=== PATIENT | female | born 1940 | race Caucasian/White ===

== ENCOUNTER 2023-11-17 13:40 | Emergency (ER) | payer OTHER, SELFPAY ==
[2023-11-17 13:50] VITALS: BP 183/75
[2023-11-17 14:12] LABS: % Basophils 0.8 % (0-2); % Eosinophils 1.8 % (0-6); % Immature Granulocytes 0.3 % (0-0.5); % Monocytes 8.8 % (1.7-9.3); % Neutrophils 70.3 % (42.2-75.2); Absolute Basophils 0.1 10^3/uL (0-0.2); Absolute Eosinophils 0.2 10^3/uL (0-0.7); Absolute Lymphocytes 1.7 10^3/uL (1.2-3.4); Absolute Monocytes 0.8 10^3/uL (0.1-0.6); Absolute Neutrophils 6.5 10^3/uL (1.4-6.5); Hemoglobin 13.5 g/dL (12.0-16.0); Mean Corp Hgb Conc. 33.8 g/dL (33.0-37.0); Mean Corpuscular Hgb 31.7 pg (27.0-31.0); Mean Corpuscular Volume 93.9 fL (81.0-99.0); Mean Platelet Volume 10.9 fL (7.4-10.4); Nucleated Red Blood Cells % 0 %; Platelet Count 236 10^3/uL (130-400); Red Blood Cell Count 4.26 10^6/uL (4.20-5.40); Red Cell Dist. Width 11.9 % (11.5-14.5); White Blood Cell Count 9.3 10^3/uL (4.8-10.8)
[2023-11-17 14:26] LABS: ALT (SGPT) 18 U/L (0-35); AST (SGOT) 26 U/L (14-36); Albumin 4.2 g/dl (3.5-5.0); Alkaline Phosphatase 60 U/L (38-126); Blood Urea Nitrogen 17 mg/dl (7-17); Calcium 9.7 mg/dl (8.4-10.2); Carbon Dioxide 30 mmol/L (22-30); Chloride 102 mmol/L (98-107); Glucose 123 mg/dl (70-99); Lipase 29 U/L (23-300); Potassium 4.5 mmol/L (3.5-5.1); Sodium 136 mmol/L (135-145); Total Bilirubin 0.3 mg/dl (0.2-1.3); Total Protein 6.3 g/dl (6.3-8.2); eGFR > 60.00
--- NOTE | 2023-11-17 17:10 | ED.GENMED ---
History of Present Illness
General
Chief Complaint: Abdominal Symptoms
Source: patient
Exam Limitations: none
Time Seen by Provider: 11/17/23 17:08
Nursing documentation reviewed up to this point in time: agreed with
History of Present Illness
History of Present Illness:
83-year-old female with past medical history of hypertension, hyperlipidemia presenting to the emergency department today with concerns of diarrhea for a little over a month. Patient states that she has been eating and drinking okay with no issue.
Patient reports that the diarrhea is nonbloody. When it first happened, she went to her primary care provider who diagnosed her with a viral gastroenteritis and started her on Imodium. Patient states that this did not resolve her symptoms. She
subsequently went to urgent care who started her on ciprofloxacin and Pepto-Bismol which also did not help. She finished her course of ciprofloxacin 7 days ago. She continued with the diarrhea. Patient notes some mild abdominal cramping right before
she has a bowel movement but otherwise no abdominal pain, no nausea, no vomiting, no fevers or chills, no rectal pain, black stools. Patient states that she tried to make a follow up appointment with her primary care provider to address this, but
she could not get an appointment for a few weeks. Patient has never seen a package handler for this issue.
Review of Systems
Review of Systems
All Other Systems: ROS reviewed and negative except as documented in HPI and ROS
Phy Exam
Physical Exam
Physical Exam:
General: Patient is well appearing and in no acute distress; non-toxic
Skin: Warm and dry, no rashes or lesions
Head: Normocephalic, atraumatic
Eyes: Sclera non-icteric. EOMs intact.
Cardiac: Regular rate
Peripheral Vascular: No lower extremity swelling or edema
Pulm: Normal respiratory effort
Abdomen: No abdominal tenderness to palpation, no guarding, no rebound tenderness. Normoactive bowel sounds.
Neuro: CN II-XII intact, no focal neurologic deficits.
Psychiatric: Appropriate mood and affect.
Course
Orders/Labs/Results
Orders:
Orders
11/17/23 13:57
Comprehensive Metabolic Panel Urgent
Lipase Urgent
11/17/23 13:58
Complete Blood Count/With Diff Urgent
Abnormal Lab Results
11/17/23 11/17/23
13:57 13:58
MCH 31.7 H pg
(27.0-31.0)
MPV 10.9 H fL
(7.4-10.4)
Absolute Monos (auto) 0.8 H 10^3/uL
(0.1-0.6)
Lymphocytes % 18.0 L %
(20.5-51.1)
Glucose 123 H mg/dl
(70-99)
11/17/23 13:58
11/17/23 13:57
Vital Signs
Initial and Last Documented VS:
Initial Vital Signs
Temp Pulse Resp BP Pulse Ox
97.6 F 75 18 183/75 97
11/17/23 13:50 11/17/23 13:50 11/17/23 13:50 11/17/23 13:50 11/17/23 13:50
Last Documented Vital Signs
Temp Pulse Resp BP Pulse Ox
97.6 F 75 18 183/75 97
11/17/23 13:50 11/17/23 13:50 11/17/23 13:50 11/17/23 13:50 11/17/23 13:50
MDM/Problems Addressed
Differential Diagnosis Includes:
Differentials include irritable bowel syndrome, C. difficile infection, colitis, foodborne illness
MDM/Problems Addressed:
Diarrhea:
83-year-old female with past medical history of hypertension, hyperlipidemia presenting to the emergency department today with concerns of diarrhea for a little over a month. She has no associated bloody diarrhea, blood from her rectum, fevers or
chills, nausea or vomiting, anorexia. On physical exam, she is afebrile and her vitals are stable. She is very well-appearing. She has no abdominal tenderness on exam. She has normoactive bowel sounds. CBC and CMP unremarkable, no evidence of
GUERO or electrolyte derangement. Considering her age and risk associated with antimotility agents, I consulted gastroenterology on-call who recommended a short course of Bentyl and close outpatient GI follow-up. Discussed this with patient. Did
attempt to get a stool sample to test for C. difficile, however patient was not able to provide a sample while here in the emergency department. Patient stable for discharge, return precautions discussed.
Chronic conditions affecting care:
Hypertension, hyperlipidemia
Acute Exacerbation and/or Progression of Chronic Illness:
n/a
*Pulse Oximetry
Patient hypoxic: no
*Critical Care Note
Total Time (30-74mins, 75-104mins- exclusive of procedures): Not Applicable
Data Reviewed
Review of Other/Old Records Reveals: Records
Patient Management
Escalation/DeEscalation of care consider admission/obs:
Patient stable for discharge, discussed case with my attending Dr. Daniel.
ED Attending Note
-
Portions of this chart may have been created with voice recognition software.� Occasional wrong word or��sound alike� substitutions may have occurred due to the inherent limitations of voice recognition software.
Discharge Plan
Departure
Patient Disposition: Home (Routine Discharge)
Date of Disposition: 11/17/23
Time of Disposition: 19:04
Patient with high blood pressure during this ER visit?: Yes
Condition: Good
Discharge Problem:
Diarrhea, Abdominal cramping
Instructions: Diarrhea, Adult ED, Abdominal Pain
Prescriptions:
New
dicyclomine 10 mg capsule
10 mg PO TID 4 Days Qty: 12 0RF
Referrals:
Darrian Pedersen MD [Family Provider] -
Alicia Gutierrez DO [Active] - Call in 1-3 days for appt
Activity Restrictions/Additional Instructions:
Starting tomorrow, please start taking 1 tablet of Bentyl 3 times daily for 4 days.
Please call the attached number to schedule appointment with Dr. Gutierrez, package handler.
Please follow-up with your primary care provider.
Please return emergency department should you experience blood in your stools, rectal pain, persistent Joseluis pain, intractable vomiting, fevers or chills, chest pain, shortness of breath, or any other signs or symptoms concerning to you.
Interventions
Interventions:
*Risk Screen - Suicide Last Done: 11/17/23 13:50
*General Assessment Last Done: 11/17/23 13:50
*Neglect/Abuse Screening Last Done: 11/17/23 13:50
ED- Fall Risk Assessment Last Done: 11/17/23 19:11
*ED COVID-19 Vaccine History Last Done: 11/17/23 16:52
*Nursing Disposition Last Done: 11/17/23 19:11
CP-Mjuwtc-Ouzwvydtrg Assessment Last Done: 11/17/23 17:03
Discharge Date and Time
Discharge Date/Time: 11/17/23 19:13
Print Language: GREENLANDIC
== END 2023-11-17 19:13 | disposition home or self-care (01) ==
LOC: EMR 13:40
PROVIDERS: Emergency Medicine; EMERGENCY PHYSICIAN Emergency Medicine; FAMILY PHYSICIAN Internal Medicine
DX: R19.7 Diarrhea, unspecified (principal); R10.9 Unspecified abdominal pain; I10 Essential (primary) hypertension; E78.5 Hyperlipidemia, unspecified; Z88.1 Allergy status to other antibiotic agents; Z88.0 Allergy status to penicillin
CPT/HCPCS: 99283; 80053; 83690; 85025